=== PATIENT | female | born 1950 | race Asian ===

== ENCOUNTER 2017-01-04 08:50 | Outpatient (CLI) | payer OTHER ==
[2017-01-04 09:23] LABS: ALBUMIN 4.6 g/dL (3.4-5.0); ANION GAP 12.1 (8-16); CARBON DIOXIDE 27.9 mmol/L (21-32); CHOL/HDL RATIO 4.9 (1-4.5); CREATININE 0.8 mg/dL (0.6-1.3); TOTAL BILIRUBIN 0.6 mg/dL (0.0-1.0)
[2017-01-04 09:29] LABS: HEMATOCRIT 39.3 % (36-48); HEMOGLOBIN 13.1 g/dL (12.0-16.0); MEAN CORPUSCULAR HEMOGLOBIN 30 pg (27-31); MEAN CORPUSCULAR HGB CONC 33 g/dL (33-37); MEAN CORPUSCULAR VOLUME 89 fL (80-94); PLATELET COUNT (AUTO) 368 K/uL (140-450); RED BLOOD CELL COUNT(AUTO) 4.42 MIL/uL (4.20-5.40); RED CELL DISTRIBUTION WIDTH 12.7 % (11.6-13.7); WHITE BLOOD COUNT (AUTO) 5.2 K/uL (4.8-10.8)
[2017-01-04 09:46] LABS: EOSINOPHILS % (MANUAL) 1 % (0-4); LYMPHOCYTES % (MANUAL) 40 % (20-46); MONOCYTES % (MANUAL) 4 % (5-12)
== END 2017-01-04 20:12 | disposition home or self-care (01) ==
LOC: MLB 08:50
PROVIDERS: ATTEND Internal Medicine Geriatric Medicine
DX: I11.9 Hypertensive heart disease without heart failure (principal); E78.5 Hyperlipidemia, unspecified
CPT/HCPCS: 36415; 80053; 82306; 83036; 85025

== ENCOUNTER 2017-09-11 09:23 | Outpatient (CLI) | payer OTHER ==
[2017-09-11 10:01] LABS: BASOPHILS # (AUTO) 0.1 K/uL (0.00-0.22); BASOPHILS % (AUTO) 1.2 % (0.0-2.0); EOSINOPHILS # (AUTO) 0.1 K/uL (0-0.4); EOSINOPHILS % (AUTO) 2.5 % (0.0-4.0); HEMATOCRIT 39.5 % (36-48); HEMOGLOBIN 13.3 g/dL (12.0-16.0); LYMPHOCYTES # (AUTO) 2.2 K/uL (2.5-16.5); LYMPHOCYTES % (AUTO) 49.1 % (20.5-51.1); MEAN CORPUSCULAR HEMOGLOBIN 30 pg (27-31); MEAN CORPUSCULAR HGB CONC 34 g/dL (33-37); MEAN CORPUSCULAR VOLUME 89.6 fL (80-94); MONOCYTES # (AUTO) 0.5 K/uL (0.8-1.0); MONOCYTES % (AUTO) 10.5 % (1.7-9.3); NEUTROPHILS # (AUTO) 1.6 K/uL (1.8-7.7); NEUTROPHILS % (AUTO) 36.7 % (42.2-75.2); PLATELET COUNT (AUTO) 348 K/uL (140-450); RED CELL DISTRIBUTION WIDTH 13.5 % (11.6-13.7); WHITE BLOOD COUNT (AUTO) 4.4 K/uL (4.8-10.8)
[2017-09-11 10:33] LABS: ALBUMIN 4.5 g/dL (3.4-5.0); ANION GAP 13.4 (8-16); CARBON DIOXIDE 26.5 mmol/L (21-32); CHOL/HDL RATIO 4.8 (1-4.5); POTASSIUM 3.9 mmol/L (3.5-5.1); TOTAL BILIRUBIN 0.5 mg/dL (0.0-1.0)
== END 2017-09-11 20:23 | disposition home or self-care (01) ==
LOC: MLB 09:23
PROVIDERS: ATTEND Internal Medicine Geriatric Medicine
DX: Z00.01 Encounter for general adult medical examination with abnormal findings (principal); I10 Essential (primary) hypertension; E11.9 Type 2 diabetes mellitus without complications; E78.5 Hyperlipidemia, unspecified; Z79.899 Other long term (current) drug therapy
CPT/HCPCS: 36415; 80053; 83036; 85025

== ENCOUNTER 2018-01-11 09:52 | Outpatient (CLI) | payer OTHER ==
[2018-01-11 10:50] LABS: ALBUMIN 4.6 g/dL (3.4-5.0); ANION GAP 12.8 (8-16); CARBON DIOXIDE 27.1 mmol/L (21-32); POTASSIUM 3.9 mmol/L (3.5-5.1); TOTAL BILIRUBIN 0.6 mg/dL (0.0-1.0)
== END 2018-01-11 21:08 | disposition home or self-care (01) ==
LOC: MLB 09:52
PROVIDERS: ATTEND Internal Medicine Geriatric Medicine
DX: E78.5 Hyperlipidemia, unspecified (principal); R73.03 Prediabetes; I10 Essential (primary) hypertension
CPT/HCPCS: 36415; 80053; 83036

== ENCOUNTER 2018-06-27 08:15 | Outpatient (CLI) | payer OTHER ==
[2018-06-27 09:10] LABS: ALBUMIN 4.5 g/dL (3.4-5.0); ANION GAP 15.7 (8-16); CARBON DIOXIDE 26.2 mmol/L (21-32); CREATININE 0.9 mg/dL (0.6-1.3); POTASSIUM 3.9 mmol/L (3.5-5.1); TOTAL BILIRUBIN 0.4 mg/dL (0.0-1.0)
== END 2018-06-27 14:46 | disposition home or self-care (01) ==
LOC: MLB 08:15
PROVIDERS: ATTEND Internal Medicine Geriatric Medicine
DX: E78.5 Hyperlipidemia, unspecified (principal); I11.9 Hypertensive heart disease without heart failure; R73.03 Prediabetes; Z76.89 Persons encountering health services in other specified circumstances
CPT/HCPCS: 36415; 80053; 82306; 83036

== ENCOUNTER 2018-07-10 10:45 | Outpatient (CLI) | payer OTHER | END 2018-07-10 21:24 | disposition home or self-care (01) | LOC: MLB 10:45 | PROVIDERS: ATTEND Internal Medicine Geriatric Medicine | DX: E88.09 Other disorders of plasma-protein metabolism, not elsewhere classified (principal) | CPT/HCPCS: 36415; 83021; 84165 ==

== ENCOUNTER 2018-09-03 15:27 | Outpatient (CLI) | payer OTHER | END 2018-09-03 20:57 | disposition home or self-care (01) | LOC: MRD 15:27 | PROVIDERS: ATTEND Internal Medicine Geriatric Medicine | DX: M17.11 Unilateral primary osteoarthritis, right knee (principal); M25.862 Other specified joint disorders, left knee; G89.29 Other chronic pain | CPT/HCPCS: 73562 ==

== ENCOUNTER 2018-12-10 09:45 | Outpatient (CLI) | payer OTHER ==
[2018-12-10 10:23] LABS: ALBUMIN 4.3 g/dL (3.4-5.0); ANION GAP 13.6 (8-16); CARBON DIOXIDE 28.3 mmol/L (21-32); CREATININE 0.9 mg/dL (0.6-1.3); POTASSIUM 3.9 mmol/L (3.5-5.1); TOTAL BILIRUBIN 0.6 mg/dL (0.0-1.0)
== END 2018-12-10 20:12 | disposition home or self-care (01) ==
LOC: MLB 09:45
PROVIDERS: ATTEND Internal Medicine Geriatric Medicine
DX: E78.5 Hyperlipidemia, unspecified (principal); R73.03 Prediabetes
CPT/HCPCS: 36415; 80053; 83036

== ENCOUNTER 2019-04-11 09:58 | Outpatient (CLI) | payer OTHER ==
[2019-04-11 10:33] LABS: BASOPHILS # (AUTO) 0.1 K/uL (0.00-0.22); EOSINOPHILS # (AUTO) 0.2 K/uL (0-0.4); EOSINOPHILS % (AUTO) 2.8 % (0.0-4.0); HEMATOCRIT 38.1 % (36-48); HEMOGLOBIN 12.7 g/dL (12.0-16.0); LYMPHOCYTES # (AUTO) 2.1 K/uL (2.5-16.5); LYMPHOCYTES % (AUTO) 33.4 % (20.5-51.1); MEAN CORPUSCULAR HEMOGLOBIN 31 pg (27-31); MEAN CORPUSCULAR HGB CONC 33 g/dL (33-37); MEAN CORPUSCULAR VOLUME 91.9 fL (80-94); MONOCYTES # (AUTO) 0.4 K/uL (0.8-1.0); MONOCYTES % (AUTO) 7.1 % (1.7-9.3); NEUTROPHILS # (AUTO) 3.5 K/uL (1.8-7.7); NEUTROPHILS % (AUTO) 55.7 % (42.2-75.2); PLATELET COUNT (AUTO) 364 K/uL (140-450); RED BLOOD CELL COUNT(AUTO) 4.15 MIL/uL (4.20-5.40); RED CELL DISTRIBUTION WIDTH 13.4 % (11.6-13.7); WHITE BLOOD COUNT (AUTO) 6.3 K/uL (4.8-10.8)
[2019-04-11 11:19] LABS: ALBUMIN 4.5 g/dL (3.4-5.0); ANION GAP 14.2 (8-16); CARBON DIOXIDE 27.5 mmol/L (21-32); CHOL/HDL RATIO 4.3 (1-4.5); CREATININE 0.9 mg/dL (0.6-1.3); POTASSIUM 3.7 mmol/L (3.5-5.1); THYROID STIMULATING HORMONE 0.93 uIU/mL (0.34-3.74); TOTAL BILIRUBIN 0.4 mg/dL (0.0-1.0)
== END 2019-04-11 20:32 | disposition home or self-care (01) ==
LOC: MLB 09:58
PROVIDERS: ATTEND Internal Medicine Geriatric Medicine
DX: E78.5 Hyperlipidemia, unspecified (principal); R73.03 Prediabetes; Z00.00 Encounter for general adult medical examination without abnormal findings
CPT/HCPCS: 36415; 80053; 82306; 83036; 84443; 85025

== ENCOUNTER 2019-07-31 10:34 | Outpatient (CLI) | payer OTHER ==
[2019-07-31 11:08] LABS: ALBUMIN 4.6 g/dL (3.4-5.0); ANION GAP 16.2 (8-16); CARBON DIOXIDE 26.7 mmol/L (21-32); CHOL/HDL RATIO 4.5 (1-4.5); POTASSIUM 3.9 mmol/L (3.5-5.1); TOTAL BILIRUBIN 0.5 mg/dL (0.0-1.0)
== END 2019-07-31 17:56 | disposition home or self-care (01) ==
LOC: MLB 10:34
DX: E78.5 Hyperlipidemia, unspecified (principal)
CPT/HCPCS: 36415; 80053